=== PATIENT | female | born 1975 | race Hispanic/Latino ===

== ENCOUNTER 2019-04-26 10:12 | Emergency (ER) | payer OTHER ==
[~2019-04-26] VITALS: Ht 154.9 cm; Wt 81.6 kg
--- OUTSIDE RECORDS SUMMARY | 2019-04-26 10:15 | XMS REPORT ---
Author Author [facility] Address Unknown Phone Unavailable Care Team Providers Care Register Of Wills Name Role Phone VERONA SANTOS Unavailable Unavailable Problems This patient has no known problems. Allergies, Adverse Reactions, Alerts This patient has no known allergies or adverse reactions. Medications This patient has no known medications. Results Test Description Test Time Test Comments Text Results Atomic Results Result Comments SCREEN, URINE 2017-05-01 23:38:00 TEST URINE (BEAKER) (test wrzv=071) Negative URINALYSIS W/ [id number] 23:35:00* Test Item Value Reference Range Comments COLOR (BEAKER) (test gqum=631) Yellow CLARITY (BEAKER) (test yzaj=763) Clear SPECIFIC GRAVITY UA (BEAKER) (test hits=274) 1.010 1.001-1.035 PH UA (BEAKER) (test rsub=541) 5.0 5.0-8.0 PROTEIN UA (BEAKER) (test tewt=522) Negative Negative GLUCOSE UA (BEAKER) (test wzya=083) >1000 mg/dL Negative KETONES UA (BEAKER) (test uecy=237) 100 mg/dL Negative BILIRUBIN UA (BEAKER) (test wkoy=913) Negative Negative BLOOD UA (BEAKER) (test lnzc=646) Negative Negative NITRITE UA (BEAKER) (test fawd=819) Negative Negative LEUKOCYTE ESTERASE UA (BEAKER) (test nvqu=229) Negative Negative UROBILINOGEN UA (BEAKER) (test mcwe=660) 0.2 mg/dL 0.2-1.0 RBC UA (BEAKER) (test swxk=762) < /HPF WBC UA (BEAKER) (test lhcs=828) 3 /HPF BACTERIA (BEAKER) (test lhcp=746) Rare SQUAMOUS EPITHELIAL (BEAKER) (test qzfe=731) 2 /HPF SOURCE(BEAKER) (test vbci=8015) Urine, Clean Catch LACTIC ACID, VENOUS, WHOLE [id number] 20:52:00* Test Item Value Reference Range Comments LACTATE BLOOD VENOUS (2) (BEAKER) (test hyzs=7316) 0.9 mmol/L 0.5-2.2 Specimen slightly hemolyzed Effective 03/13/2016: Units/Reference Range ChangeNew: 0.5-2.2 mmol/L Previous: 5 -20 mg/dLBASIC METABOLIC [id number] 18:08:00* Test Item Value Reference Range Comments SODIUM (BEAKER) (test xlgl=806) 133 meq/L 136-145 POTASSIUM (BEAKER) (test qjmc=752) 3.9 meq/L 3.5-5.1 CHLORIDE (BEAKER) (test cqkl=310) 103 meq/L 98-107 CO2 (BEAKER) (test rehn=600) 22 meq/L 22-29 BLOOD UREA NITROGEN (BEAKER) (test klpq=350) 12 mg/dL 7-21 CREATININE (BEAKER) (test yqxh=424) 0.79 mg/dL 0.57-1.25 GLUCOSE RANDOM (BEAKER) (test xibq=444) 258 mg/dL 70-105 CALCIUM (BEAKER) (test nchk=485) 9.2 mg/dL 8.4-10.2 EGFR (BEAKER) (test mupy=1390) mL/min/1.73 sq m INSUFFICIENT CLINICAL DATA TO CALCULATE ESTIMATED GFR. [id number] 17:59:00* Test Item Value Reference Range Comments LIPASE (BEAKER) (test dtba=901) 31 U/L 8-78 [id number] 17:59:00* Test Item Value Reference Range Comments AMYLASE (BEAKER) (test bgcj=498) 47 U/L 25-125 HEPATIC FUNCTION [id number] 17:59:00* Test Item Value Reference Range Comments TOTAL PROTEIN (BEAKER) (test xdww=261) 7.4 gm/dL 6.0-8.3 ALBUMIN (BEAKER) (test icbl=1827) 4.0 g/dL 3.5-5.0 BILIRUBIN TOTAL (BEAKER) (test yxdh=348) 0.9 mg/dL 0.2-1.2 BILIRUBIN DIRECT (BEAKER) (test ngtq=853) 0.4 mg/dL 0.1-0.5 ALKALINE PHOSPHATASE (BEAKER) (test njxl=953) 92 U/L 40-150 AST (SGOT) (BEAKER) (test dmwg=861) 169 U/L 5-34 ALT (SGPT) (BEAKER) (test ezlb=961) 206 U/L 6-55 KETONE, [id number] 17:27:00* Test Item Value Reference Range Comments KETONES, BLOOD (BEAKER) (test tezw=4965) 1.1 mmol/L <0.4 CBC W/PLT COUNT & AUTO [id number] 17:24:00* Test Item Value Reference Range Comments WHITE BLOOD CELL COUNT (BEAKER) (test ntay=765) 8.1 K/ L 4.0-10.0 RED BLOOD CELL COUNT (BEAKER) (test uqtn=964) 5.16 M/ L 4.00-5.00 HEMOGLOBIN (BEAKER) (test tyds=022) 16.2 GM/DL 12.0-15.0 HEMATOCRIT (BEAKER) (test ggbi=939) 47.2 % 36.0-45.0 MEAN CORPUSCULAR VOLUME (BEAKER) (test suht=062) 91.6 fL 82.0-99.0 MEAN CORPUSCULAR HEMOGLOBIN (BEAKER) (test zull=020) 31.4 pg 27.0-33.0 MEAN CORPUSCULAR HEMOGLOBIN CONC (BEAKER) (test ldmr=247) 34.3 GM/DL 32.0-36.0 RED CELL DISTRIBUTION WIDTH (BEAKER) (test kywu=841) 12.0 % 10.3-14.2 PLATELET COUNT (BEAKER) (test nbox=212) 199 K/CU MM 150-430 MEAN PLATELET VOLUME (BEAKER) (test llyj=753) 8.5 fL 6.5-10.5 NUCLEATED RED BLOOD CELLS (BEAKER) (test sioe=500) 0 /100 WBC 0-0 NEUTROPHILS RELATIVE PERCENT (BEAKER) (test svsz=200) 87 % LYMPHOCYTES RELATIVE PERCENT (BEAKER) (test prjp=003) 9 % MONOCYTES RELATIVE PERCENT (BEAKER) (test lcwk=368) 4 % EOSINOPHILS RELATIVE PERCENT (BEAKER) (test jflm=348) 0 % BASOPHILS RELATIVE PERCENT (BEAKER) (test uesr=610) 0 % NEUTROPHILS ABSOLUTE COUNT (BEAKER) (test tble=649) 7.03 K/ L 1.80-8.00 LYMPHOCYTES ABSOLUTE COUNT (BEAKER) (test aiam=482) 0.75 K/ L 1.48-4.50 MONOCYTES ABSOLUTE COUNT (BEAKER) (test cgeu=923) 0.29 K/ L 0.00-1.30 EOSINOPHILS ABSOLUTE COUNT (BEAKER) (test agrm=792) 0.02 K/ L 0.00-0.50 BASOPHILS ABSOLUTE COUNT (BEAKER) (test coof=554) 0.03 K/ L 0.00-0.20 0.00
--- OUTSIDE RECORDS SUMMARY | 2019-04-26 10:15 | XMS REPORT | Clinical Summary ---
Author Author [facility] Address Unknown Phone Unavailable Care Team Providers Care Leather Stitcher Name Role Phone Matilda Russo MD PCP Allergies No Known Allergies Medications End Date Status Medication Sig Dispensed Refills Start Date Active metFORMIN (GLUCOPHAGE) TK 2 TS PO AT 3 500 mg tablet BREAKFAST D 9 AND 2 TS AT SUPPER D Active pioglitazone (ACTOS) 30 TK 1 T PO D 0 MG tablet 9 Active dapagliflozin (FARXIGA) Take 10 mg by 0 10 mg tablet mouth daily. Active lisinopril Take 2.5 mg 0 (PRINIVIL,ZESTRIL) 2.5 mg by mouth tablet daily. Active atorvastatin (LIPITOR) 10 Take 10 mg by 0 MG tablet mouth daily. Active Problems No known active problems Encounters Care Team Description Date Type Specialty Phillip Malagon MD 04/14/2019 Hospital Radiology Encounter Pretty Banks MA Bariatric surgery status (Primary Dx); Obstructive sleep apnea; Obesity with body mass index of 30.0-39.9; Diabetes mellitus due to underlying condition with hyperosmolarity without coma, without long-term current use of insulin (HCC); Pre-operative laboratory examination 04/14/2019 Orders Only General Surgery Phillip Malagon MD Diabetes mellitus due to underlying condition with hyperosmolarity without coma, without long-term current use of insulin (HCC) (Primary Dx); Status post gastric banding; Obstructive sleep apnea; Obesity (BMI 30-39.9) 03/08/2019 Office Visit General Surgery after 04/25/2018 Family History Medical History Relation Name Comments Heart disease Brother Diabetes Father Breast cancer Maternal Aunt Breast cancer Maternal Grandmother Heart disease Maternal Uncle Breast cancer Mother Diabetes Mother Colon cancer Paternal Uncle Heart disease Paternal Uncle Breast cancer Sister Relation Name Status Comments Brother Father Maternal Aunt Maternal Grandmother Maternal Uncle Mother Paternal Uncle Sister Social History Date Tobacco Use Types Packs/Day Years Used Quit: 2011 Former Smoker Smokeless Tobacco: Never Used Comments: occasional smoker during this time Alcohol Use Drinks/Week oz/Week Comments No Alcohol Habits Answer Date Recorded How often do you have a drink containing alcohol? Never 03/08/2019 How many drinks containing alcohol do you have on Not asked a typical day when you are drinking? How often do you have six or more drinks on one Not asked occasion? Sex Assigned at Date Recorded Not on file Industry Job Start Date Occupation Not on file Not on file Not on file Travel End Travel History Travel Start No recent travel history available. Last Filed Vital Signs Time Taken Vital Sign Reading 03/08/2019 3:10 PM CDT Blood Pressure 137/80 03/08/2019 3:10 PM CDT Pulse 94 03/08/2019 3:10 PM CDT Temperature 36.6 C (97.9 F) 03/08/2019 3:10 PM CDT Respiratory Rate 16 03/08/2019 3:10 PM CDT Oxygen Saturation 97% - Inhaled Oxygen - Concentration 03/08/2019 3:10 PM CDT Weight 82.1 kg (181 lb) 03/08/2019 3:10 PM CDT Height 157.5 cm (5' 2") 03/08/2019 3:10 PM CDT Body Mass Index 33.11 Plan of Treatment Health Maintenance Due Date Last Done Comments DIABETIC RETINAL EYE EXAM 1977 DIABETIC FOOT EXAM 1987 URINE MICROALBUMIN 1987 INFLUENZA VACCINE 06/10/2019 12/11/2017 Procedures Comments Procedure Name Priority Date/Time Associated Diagnosis NM EXTERNAL STUDY EXAM Routine 02/12/2019 7:50 AM CDT after 04/25/2018 Results * NM External Study Exam (02/12/2019 7:50 AM CDT) Specimen Narrative Performed At This exam was not acquired at a [facility] facility and has not been [facility] interpreted by a [facility] Provider.The exam was imported into our imaging system for comparisons purposes. Performing Organization Address City/State/Zipcode Phone Number [facility] [address] [place] [address] after 04/25/2018 Insurance Type Payer Benefit Subscriber ID Effective Phone Address Plan / Dates Group HMO AMBER SAMANIEGO xxxxxxxxxxx 2012[address] O Liability Advance Directives Patient has advance care planning documents on file. For more information, miguel maradiaga contact: Hima Avila [address] [place] [address]
--- OUTSIDE RECORDS SUMMARY | 2019-04-26 10:15 | XMS REPORT | Clinical Summary ---
Author Author [facility] Address Unknown Phone Unavailable Care Team Providers Care Signals Collection Technician Name Role Phone Sharpless PCP Allergies No Known Allergies Medications No known medications Active Problems Not on file Social History Date Tobacco Use Types Packs/Day Years Used Never Smoker Alcohol Use Drinks/Week oz/Week Comments No Sex Assigned at Date Recorded Not on file Industry Job Start Date Occupation Not on file Not on file Not on file Travel End Travel History Travel Start No recent travel history available. Last Filed Vital Signs Not on file Plan of Treatment Not on file Results Not on fileafter 04/25/2018 Insurance Payer Benefit Subscriber ID Type Phone Address Plan / Group [employer] - [employer] xxxxxxxxxxx HMO/POS NETWORK (Home) [place] [address]
[2019-04-26] MEDS ORDERED: BENZOCAINE 20% SPR 60 ML CAN MT ONE (10:30)
--- NOTE | 2019-04-26 10:47 | NUR ---
Janiya loyola in ED - 04/26/19 at 1053 by URI PATIENT CALLED ASKING ABOUT DISC HE WAS SUPPOSE TO RECEIVE FROM RADIOLOGY. REMINDED PATIENT HE PLACED IT IN A SMALL SAFE THAT LOOKED LIKE A BLUE ATLAS BOOK. HE PLACED IT ALONG WITH HIS DISCHARGE INSTRUCTIONS AND HIS PRESCRIPTION
[2019-04-26 11:26] LABS: BILIRUBIN,URINE NEGATIVE (NEGATIVE); CLARITY,URINE SL CLOUDY (CLEAR); COLOR,URINE YELLOW (YELLOW); LEUKOCYTE ESTERASE ,URINE NEGATIVE (NEGATIVE); NITRITE,URINE NEGATIVE (NEGATIVE); PROTEIN,URINE DIPSTICK NEGATIVE (NEGATIVE); URINE UROBILINOGEN 0.2 mg/dL (0.2 - 1)
--- NOTE | 2019-04-26 11:27 | NUR ---
PLACED ON UPSIDE DOWN LARGE BEDPAN COVERED WITH BEDSHEET. ASSISTED CORNELIUS Donald.Alexey WITH WET PREP. VERY PAINFUL FOR PATIENT, ALSO C/O OF BACK PAIN/SPASM
[2019-04-26 11:29] LABS: KETONES,URINE 2+ (NEGATIVE)
[2019-04-26 11:33] LABS: PREGNANCY TEST, URINE NEGATIVE (NEGATIVE)
[2019-04-26 11:46] LABS: WBC,URINE (MAN) 0-5 /HPF (0-5)
[2019-04-26 11:47] LABS: BACTERIA,URINE RARE /HPF
[2019-04-26 11:48] LABS: EPITHELIAL CELLS,URINE MODERATE /LPF
--- NOTE | 2019-04-26 13:18 | NUR ---
ENCOURAGING PATIENT TO DRINK FLUIDS TO STAY HYDRATED
== END 2019-04-26 14:04 | disposition home or self-care (01) ==
LOC: ER 10:12
DX: N76.0 Acute vaginitis (principal); B37.3 Candidiasis of vulva and vagina; E11.9 Type 2 diabetes mellitus without complications
CPT/HCPCS: 36415; 81001; 81025; 82948; 87210; 99284